=== PATIENT | male | born 1940 | race Caucasian/White ===

== ENCOUNTER 2022-06-05 11:45 | Outpatient (CLI) | payer MEDICARE, OTHER, SELFPAY ==
[2022-06-05 18:05] LABS: PSA Diagnostic* 0.28 ng/mL (0.10-4.00)
== END 2022-06-05 11:46 | disposition home or self-care (01) ==
LOC: LONREF 11:45
PROVIDERS: PCP Family Medicine; Visit Provider Family Medicine
DX: C61 Malignant neoplasm of prostate (principal)
CPT/HCPCS: 84153

== ENCOUNTER 2022-12-20 06:59 | Outpatient (CLI) | payer MEDICARE, OTHER, SELFPAY ==
--- NOTE | 2022-12-20 07:15 | CRLHL7_ITS ---
For Patients: As a result of the Cures Act, medical imaging exams and procedure reports are released immediately into your electronic medical record. You may view this report before your referring provider. If you have questions, please contact your health care provider. INDICATION: Liver disease. COMPARISON: CT dated 06/09/2021. TECHNIQUE: Multiphasic, multisequence MRI of the abdomen without with contrast. 15 cc Dotarem administered intravenously. FINDINGS: Left hepatic lobe enlargement redemonstrated. No splenomegaly or ascites. Multiple hemangiomas and a few small cysts redemonstrated. No suspicious liver lesion. Patent portal and hepatic veins. No abdominal aortic aneurysm. Significant atherosclerotic disease, however. Kidneys enhance symmetrically. Small left pleural effusion and tiny right pleural effusion. No definite adenopathy in the abdomen. Evaluation overall limited moderately by motion artifact, however. Heterogeneous marrow scoliosis compression deformity mid to lower thoracic spine appears unchanged. Colonic diverticulosis. IMPRESSION: 1. Left hepatic lobe enlargement, but otherwise no findings suggestive of cirrhosis. Hemangioma and small liver cysts redemonstrated. No suspicious liver lesion. 2. Small left pleural effusion and tiny right pleural effusion. 3. Colonic diverticulosis. Dictated by Marc Landa MD @ 12/22/2022 10:48:09 AM (Electronically Signed)
--- NOTE | 2022-12-20 08:45 | CRLHL7_ITS ---
For Patients: As a result of the 21st Century Cures Act, medical imaging exams and procedure reports are released immediately into your electronic medical record. You may view this report before your referring provider. If you have questions, please contact your health care provider. Indication: Back pain. Technique: Multiplanar, multisequence MRI of the lumbar spine was performed without intravenous contrast. Comparison: Lumbar spine radiographs 11/11/2022. Findings: There are 5 lumbar type vertebral segments identified. The vertebral body heights are maintained without evidence of fracture. There is no discrete T1 hypointense marrow infiltrating process. Heterogeneity to the bone marrow, favored to represent osteoporosis. 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 The conus medullaris terminates at L1, normal. Cauda equina appears unremarkable. T12-L1: No spinal canal or neural foraminal stenosis. L1-2: No spinal canal narrowing. Mild left neural foraminal narrowing secondary sclerotic curvature and facet hypertrophy. Moderate facet arthropathy. L2-3: Disc degeneration without spinal canal narrowing. Moderate left neural foraminal narrowing secondary scoliotic curvature facet hypertrophy. Right neural foramina is patent. L3-4: Grade 1 anterolisthesis. Disc bulge with facet hypertrophy resulting in mild spinal canal narrowing. Moderate right and [id number] left neural foraminal narrowing secondary to disc bulge and facet hypertrophy. L4-5: Disc degeneration. Minimal disc bulge with mild spinal canal narrowing when coupled with facet hypertrophy. [id number]-[id number] right and mild left neural foraminal narrowing. Moderate to severe facet arthropathy. L5-S1: Grade 1 anterolisthesis. No spinal canal narrowing. Mchb-ok-ifstjepy right and mild left neural foraminal narrowing. Moderate left and severe right facet arthropathy. Reactive osseous and soft tissue edema surrounding the right facet. The visualized sacroiliac joints appear patent. Impression: 1. Severe dextroconvex curvature. 2. At L2-3, moderate left neural foraminal narrowing. 3. At L3-4, grade 1 anterolisthesis with mild spinal canal, moderate right and [id number] left neural foraminal narrowing. 4. At L4-5, mild to moderate right and mild left neural foraminal narrowing. 5. At L5-S1, grade 1 anterolisthesis mild to moderate right and mild left neural foraminal narrowing. 6. Moderate to severe multilevel facet arthropathy. Dictated by Nicholas Lopez MD @ 12/20/2022 3:17:00 PM (Electronically Signed)
== END 2022-12-20 07:00 | disposition home or self-care (01) ==
LOC: MRI 07:00
PROVIDERS: PCP Family Medicine; Visit Provider Family Medicine
DX: K76.9 Liver disease, unspecified (principal); R16.0 Hepatomegaly, not elsewhere classified; R29.898 Other symptoms and signs involving the musculoskeletal system; M54.9 Dorsalgia, unspecified
CPT/HCPCS: 72148; 74183; A9575